=== PATIENT | male | born 1985 | race Caucasian/White ===

== ENCOUNTER 2019-08-13 12:39 | Emergency (ER) | payer SELFPAY ==
[~2019-08-13] VITALS: Ht 172.7 cm; Wt 120.2 kg
[2019-08-13 13:26] VITALS: Ht 172.7 cm; Wt 120.2 kg
[2019-08-13 14:07] LABS: BASOPHIL % 0.3 % (0-2); PLATELET COUNT 284 x10^3mcL (130-400); RED CELL DISTRIBUTION WIDTH 13.8 % (11.5-14.5)
[2019-08-13 14:16] LABS: CALCIUM 8.3 mg/dL (8.5-10.1); CARBON DIOXIDE 25.7 mmol/L (21-32); CHLORIDE SERUM 104 mmol/L (98-107); CREATININE SERUM 0.6 mg/dL (0.7-1.3); GFR1 > 60 mL/min; GLUCOSE SERUM 102 mg/dL (74-106); POTASSIUM SERUM 4.2 mmol/L (3.5-5.1); SODIUM SERUM 137 mmol/L (136-145)
[2019-08-13 14:20] LABS: ALKALINE PHOSPHATASE 124 U/L (46-116); ALT/SGPT 55 U/L (16-63); AST/SGOT 38 U/L (15-37); BILIRUBIN TOTAL 0.4 mg/dL (0.20-1.00)
[2019-08-13 14:37] LABS: ALBUMIN 3.3 g/dL (3.4-5.0); TOTAL PROTEIN, SERUM 8.5 g/dL (6.4-8.2)
[2019-08-13 16:21] VITALS: BP 129/83
== END 2019-08-13 16:21 | disposition home or self-care (01) ==
LOC: ED 12:39
DX: R00.2 Palpitations (principal); F10.20 Alcohol dependence, uncomplicated; E66.9 Obesity, unspecified; I10 Essential (primary) hypertension
CPT/HCPCS: 36415; Q0092